=== PATIENT | female | born 1965 | race Caucasian/White ===

== ENCOUNTER 2017-05-18 08:59 | Day surgery (SDC) | payer BC ==
[2017-05-17 09:58] VITALS: BMI 28.3
[~2017-05-18 08:59] MED LIST: LACTATED RINGERS 1,000 ML IV SCH; LIDOCAINE 1% 20 ML VIAL (10MG/ML) FOR IV START INTRADERMA PRN
[2017-05-18] MEDS ORDERED: fentaNYL (PF) 50 MCG/ML 2 ML AMP ONE (10:19)
[2017-05-18] MEDS ORDERED: PROPOFOL 10 MG/ML 20 ML VIAL IV ONE (10:19)
[2017-05-18] MEDS ORDERED: LIDOCAINE 1% INJ 10MG/ML (20 ML MDV) ONE (10:19)
[2017-05-18 10:20] VITALS: RESP 16; TEMP 97
--- NOTE | 2017-05-18 10:43 | P.PCN ---
Date of Procedure: 05/18/17 Procedure(s) Performed: Brief history: Patient is a pleasant 52-year-old white female, scheduled for an elective upper endoscopy as well as colonoscopy as a part of evaluation of deficiency anemia. She denies any GI symptoms. She takes occasional NSAIDs. No prior history of peptic ulcer disease. Procedure performed: Esophagogastroduodenoscopy with biopsy Colonoscopy Preoperative diagnosis: Iron deficiency anemia Anesthesia: MAC Procedure: After informed consent was obtained from the patient was brought into the endoscopy unit and IV sedation was administered by anesthesia under continuous monitoring. Initially upper endoscopy was done. The Olympus GF 160 video endoscope was inserted inserted into the mouth and esophagus intubated without any difficulty and was gradually advanced into the stomach and duodenum and carefully examined. The bulb and second part of the duodenum appeared normal. Biopsies were done from the duodenum to rule out celiac disease. The scope was then withdrawn into the stomach adequately insufflated with air and upon careful examination the antrum had mild gastritis and biopsies were done from this area. The body, cardia and fundus appeared normal. The scope was then withdrawn into the esophagus. The GE junction was located at 40 cm to the incisors. It appeared regular with no erythema erosions or ulcerations. Rest of the esophagus appeared normal. Patient tolerated the procedure well. At this time the patient continued to remain sedation. Initial digital rectal examination was normal. Olympus CF 160 video colonoscope was then inserted into the rectum and gradually advanced to the cecum without any difficulty. Careful examination was performed as the scope was gradually being withdrawn. The prep was excellent. The cecum, ascending colon, transverse colon, descending colon, sigmoid colon and rectum appeared normal. Retroflexion was performed in the rectum and no lesions were noted. Patient tolerated the procedure well. Impression: 1. Upper endoscopy revealed mild antral gastritis but no evidence of esophagitis or peptic ulcer disease. 2. Colonoscopy was essentially within normal limits with no evidence of colitis or colorectal neoplasia Recommendations: Findings of this examination were discussed with the patient as well as her family. She was advised to follow with the biopsy results. She will resume iron supplements. She can have a repeat screening colonoscopy in 10 years.
[2017-05-18 11:06] VITALS: BP 133/82; PULSE 64
== END 2017-05-18 11:32 | disposition home or self-care (01) ==
LOC: ORWHC2ENDO 08:59
PROVIDERS: ATTEND Internal Medicine Gastroenterology
DX: D50.9 Iron deficiency anemia, unspecified (principal); K29.60 Other gastritis without bleeding; E07.9 Disorder of thyroid, unspecified; Z79.899 Other long term (current) drug therapy; Z88.1 Allergy status to other antibiotic agents
CPT/HCPCS: 81025; 88305; 88342; 45378; 43239; J2001; J3010; J2704

== ENCOUNTER → 2017-06-21 | Outpatient (CLI) | payer BC ==
--- NOTE | 2017-06-22 11:14 | MM ---
Reason for exam: screening (asymptomatic). Last mammogram was performed 1 year and 1 month ago. History: Patient is postmenopausal. Physical Findings: A clinical breast exam by your physician is recommended on an annual basis and results should be correlated with mammographic findings. MG 3D Screening Mammo W/Cad Bilateral CC and MLO view(s) were taken. Prior study comparison: May 12, 2016, bilateral MG 3d screening mammo w/cad. April 06, 2015, bilateral MG screening mammo w CAD. There are scattered fibroglandular densities. No significant changes when compared with prior studies. ASSESSMENT: Negative, BI-RAD 1 RECOMMENDATION: Routine screening mammogram of both breasts in 1 year.
== END | disposition home or self-care (01) ==
LOC: RADMAMWWP 09:12
PROVIDERS: ATTEND Obstetrics & Gynecology
DX: Z12.31 Encounter for screening mammogram for malignant neoplasm of breast (principal)
CPT/HCPCS: 77063; 77067

== ENCOUNTER 2018-04-02 16:01 | Emergency (ER) | payer BC, OTHER ==
[2018-04-02] MEDS ORDERED: DIPH,PERTUS(ACELL)TETVAC-LF 0.5 ML VIAL IM ONE (16:05)
[2018-04-02 16:19] VITALS: BP 128/82; PULSE 62; RESP 18; TEMP 98.4
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
== END 2018-04-02 16:52 | disposition home or self-care (01) ==
LOC: EC 16:01
DX: S50.812A Abrasion of left forearm, initial encounter (principal); S00.81XA Abrasion of other part of head, initial encounter; Z23 Encounter for immunization; Z79.899 Other long term (current) drug therapy; Z88.1 Allergy status to other antibiotic agents; Y04.8XXA Assault by other bodily force, initial encounter; Y92.69 Other specified industrial and construction area as the place of occurrence of the external cause; Y99.0 Civilian activity done for income or pay
CPT/HCPCS: 90471; 90715; 99283

== ENCOUNTER → 2018-08-05 | Outpatient (CLI) | payer BC ==
--- NOTE | 2018-08-06 11:13 | MM ---
Reason for exam: screening (asymptomatic). Last mammogram was performed 1 year and 2 months ago. History: Patient is postmenopausal. Physical Findings: A clinical breast exam by your physician is recommended on an annual basis and results should be correlated with mammographic findings. MG 3D Screening Mammo W/Cad Bilateral CC and MLO view(s) were taken. Prior study comparison: June 21, 2017, bilateral MG 3d screening mammo w/cad. May 12, 2016, bilateral MG 3d screening mammo w/cad. There are scattered fibroglandular densities. There are benign appearing round calcifications bilaterally. There is no discrete abnormality. ASSESSMENT: Benign, BI-RAD 2 RECOMMENDATION: Routine screening mammogram of both breasts in 1 year.
== END ==
LOC: RADMAMWWP 08:22
PROVIDERS: ATTEND Obstetrics & Gynecology
DX: Z12.31 Encounter for screening mammogram for malignant neoplasm of breast (principal)
CPT/HCPCS: 77063; 77067

== ENCOUNTER → 2019-08-15 | Outpatient (CLI) | payer BC ==
--- NOTE | 2019-08-18 08:27 | MM ---
Reason for exam: screening (asymptomatic). Last mammogram was performed 1 year ago. History: Patient is postmenopausal. Family history of breast cancer in mother at age 74. Physical Findings: A clinical breast exam by your physician is recommended on an annual basis and results should be correlated with mammographic findings. MG 3D Screening Mammo W/Cad Bilateral CC and MLO view(s) were taken. XCCL view(s) were taken of the right breast. Prior study comparison: August 05, 2018, bilateral MG 3d screening mammo w/cad. June 21, 2017, bilateral MG 3d screening mammo w/cad. There are scattered fibroglandular densities. Benign appearing bilateral calcifications. No suspicious abnormality. No significant changes when compared with prior studies. ASSESSMENT: Benign, BI-RAD 2 RECOMMENDATION: Routine screening mammogram of both breasts in 1 year.
== END ==
LOC: RADMAMWWP 08:20
PROVIDERS: ATTEND Obstetrics & Gynecology
DX: Z12.31 Encounter for screening mammogram for malignant neoplasm of breast (principal); Z78.0 Asymptomatic menopausal state; Z80.3 Family history of malignant neoplasm of breast
CPT/HCPCS: 77063; 77067

== ENCOUNTER → 2020-06-04 | Outpatient (CLI) | payer BC | END | disposition home or self-care (01) | LOC: LABMAIN 18:51 | PROVIDERS: ATTEND Emergency Medicine | DX: Z01.84 Encounter for antibody response examination (principal) | CPT/HCPCS: 36415; 86769 ==

== ENCOUNTER 2020-08-04 09:07 | Emergency (ER) | payer BC, OTHER ==
--- NOTE | 2020-08-04 09:09 | ED ---
General Adult HPI - General Stated complaint: Needlestick Time Seen by Provider: 08/04/20 09:08 Source: patient, RN notes reviewed Mode of arrival: ambulatory Limitations: no limitations - History of Present Illness Initial comments: This is a 55-year-old female presents emergency Department chief complaint of needlestick. Patient states that she was feeling cart full of needles states that she was moving them in there was a needle which was uncapped. He did not appear to be dirty in nature of this is unclear. Patient is up-to-date on her vaccines. Patient states she poked her left hand fourth digit with minimal blood - Related Data Home Medications Medication Instructions Recorded Confirmed Levothyroxine Sodium [Levoxyl] 125 mcg PO QAM 07/20/14 05/17/17 Ascorbic Acid [Vitamin C] 500 mg PO DAILY 05/17/17 05/17/17 Cholecalciferol (Vitamin D3) 2,000 unit PO DAILY 05/17/17 05/17/17 [Vitamin D3] Fish Oil/Dha/Epa [Fish Oil 1,200 1 each PO DAILY 05/17/17 05/17/17 mg Fish Oil] Vitamin B Complex 1 each PO DAILY 05/17/17 05/17/17 Vitamin C/Biotin [Hair, Skin and 1 tab PO DAILY 05/17/17 05/17/17 Nails] Allergies Allergy/AdvReac Type Severity Reaction Status Date / Time Tetracyclines Allergy Unknown Verified 08/04/20 09:16 Review of Systems ROS Statement: Those systems with pertinent positive or pertinent negative responses have been documented in the HPI. ROS Other: All systems not noted in ROS Statement are negative. Past Medical History Past Medical History: Thyroid Disorder History of Any Multi-Drug Resistant Organisms: None Reported Past Surgical History: Back Surgery, Section Additional Past Surgical History / Comment(s): endometrial ablation. Past Psychological History: No Psychological Hx Reported General Exam General appearance: alert, in no apparent distress Head exam: Present: atraumatic, normocephalic, normal inspection Respiratory exam: Present: normal lung sounds bilaterally. Absent: respiratory distress, wheezes, rales, rhonchi, stridor Cardiovascular Exam: Present: regular rate, normal rhythm, normal heart sounds. Absent: systolic murmur, diastolic murmur, rubs, gallop, clicks Extremities exam: Present: other (Small puncture wound noted to the left fourth digit distal tip) Course Vital Signs 08/04/20 09:10 Temperature 98.0 F Pulse Rate 65 Respiratory 18 Rate Blood Pressure 127/80 O2 Sat by Pulse 99 Oximetry Medical Decision Making - Medical Decision Making Patient has needlestick of left hand no source most likely clean needle which was uncapped. Prophylaxis was offered patient declined patient will follow-up for retesting. Disposition Clinical Impression: Needle stick injury of finger Disposition: HOME SELF-CARE Condition: Stable Instructions (If sedation given, give patient instructions): Needle Stick Injuries (ED) Additional Instructions: Please return to the Emergency Department if symptoms worsen or any other concerns. Is patient prescribed a controlled substance at d/c from ED?: No Referrals: John Gonzalez MD [Primary Care Provider] - 1-2 days Time of Disposition: 09:09
[2020-08-04 09:16] VITALS: BP 127/80; PULSE 65; RESP 18; TEMP 98
== END 2020-08-04 09:26 | disposition home or self-care (01) ==
LOC: EC 09:07
DX: S61.235A Puncture wound without foreign body of left ring finger without damage to nail, initial encounter (principal); Y99.0 Civilian activity done for income or pay; W46.0XXA Contact with hypodermic needle, initial encounter
CPT/HCPCS: 99282

== ENCOUNTER → 2020-08-04 | Outpatient (CLI) | payer BC | DX: Z53.9 Procedure and treatment not carried out, unspecified reason (principal) ==

== ENCOUNTER → 2020-08-24 | Outpatient (CLI) | payer BC ==
--- NOTE | 2020-08-25 10:18 | MM ---
Reason for exam: screening (asymptomatic). Last mammogram was performed 1 year ago. History: Patient is postmenopausal. Family history of breast cancer in mother at age 74. Physical Findings: A clinical breast exam by your physician is recommended on an annual basis and results should be correlated with mammographic findings. MG 3D Screening Mammo W/Cad Bilateral CC and MLO view(s) were taken. Prior study comparison: August 15, 2019, bilateral MG 3d screening mammo w/cad. August 05, 2018, bilateral MG 3d screening mammo w/cad. There are scattered fibroglandular densities. Stable benign calcifications. There is no discrete abnormality. No significant changes when compared with prior studies. ASSESSMENT: Benign, BI-RAD 2 RECOMMENDATION: Routine screening mammogram of both breasts in 1 year.
== END ==
LOC: RADMAMWWP 10:00
PROVIDERS: ATTEND Obstetrics & Gynecology
DX: Z12.31 Encounter for screening mammogram for malignant neoplasm of breast (principal); Z78.0 Asymptomatic menopausal state; Z80.3 Family history of malignant neoplasm of breast
CPT/HCPCS: 77063; 77067

== ENCOUNTER → 2021-03-25 | Outpatient (CLI) | payer BC ==
[2021-03-25 07:58] LABS: HGB 13.8 gm/dL (11.4-16.0); MCH 28.6 pg (25.0-35.0); MCHC 32.1 g/dL (31.0-37.0); MCV 88.9 fL (80.0-100.0); Mean Platelet Volume 7.7; Platelet Count 265 k/uL (150-450); RBC 4.84 m/uL (3.80-5.40); RDW 12.8 % (11.5-15.5); WBC 6.4 k/uL (3.8-10.6)
[2021-03-25 12:10] LABS: African American GFR (CKD) 114.6 (60.0-200.0); Albumin 4.7 g/dL (3.8-4.9); Albumin/Globulin Ratio 1.89 (1.60-3.17); Anion Gap 14.3 mmol/L (4.00-12.00); BUN/Creat Ratio 25.72 Ratio (12.00-20.00); Blood Urea Nitrogen 16.9 mg/dL (9.0-27.0); Calcium 10.2 mg/dL (8.7-10.3); Carbon Dioxide 24.7 mmol/L (21.6-31.8); Chol/HDL Ratio 3.55 Ratio; Globulin 2.5 g/dL (1.6-3.3); HDL Cholesterol 52.9 mg/dL (40.00-60.00); LDL Cholesterol,Calculated 101.9 mg/dL (0.0-131.0); Non-African American GFR(CKD) 98.9 (60.0-200.0); Potassium 4.3 mmol/L (3.5-5.5); T4, Free (Free Thyroxine) 1.35 ng/dL (0.800-1.800); Total Bilirubin 0.4 mg/dL (0.30-1.20); Total Protein 7.1 g/dL (6.2-8.2); VLDL Calculation 33.2 mg/dL (5.00-40.00)
== END | disposition home or self-care (01) ==
LOC: LABMAIN 07:23
PROVIDERS: ATTEND Family Medicine
DX: Z00.01 Encounter for general adult medical examination with abnormal findings (principal); E03.9 Hypothyroidism, unspecified; Z20.822 Contact with and (suspected) exposure to COVID-19
CPT/HCPCS: 36415; 80053; 80061; 84439; 84443; 84481; 85027; 86769

== ENCOUNTER → 2021-10-07 | Outpatient (CLI) | payer BC ==
--- NOTE | 2021-10-10 11:49 | MM ---
Reason for exam: screening (asymptomatic). Last mammogram was performed 1 year and 1 month ago. History: Patient is postmenopausal. Family history of breast cancer in mother at age 74. Physical Findings: A clinical breast exam by your physician is recommended on an annual basis and results should be correlated with mammographic findings. MG 3D Screening Mammo W/Cad Bilateral CC and MLO view(s) were taken. Prior study comparison: August 24, 2020, bilateral MG 3d screening mammo w/cad. August 15, 2019, bilateral MG 3d screening mammo w/cad. There are scattered fibroglandular densities. There are benign appearing round calcifications bilaterally. There is no discrete abnormality. ASSESSMENT: Benign, BI-RAD 2 RECOMMENDATION: Routine screening mammogram of both breasts in 1 year.
== END | disposition home or self-care (01) ==
LOC: RADMAMWWP 12:59
PROVIDERS: ATTEND Obstetrics & Gynecology
DX: Z12.31 Encounter for screening mammogram for malignant neoplasm of breast (principal)
CPT/HCPCS: 77063; 77067

== ENCOUNTER → 2022-04-11 | Outpatient (CLI) | payer BC ==
[2022-04-11 10:59] LABS: HCT 39.9 % (37.2-46.3); HGB 12.8 g/dL (12.0-15.0); MCH 27.1 pg (27.0-32.0); MCHC 32.1 g/dL (32.0-37.0); MCV 84.5 fL (80.0-97.0); NRBC Per 100 WBC 0 /100 WBCS (0.0-0.0); Platelet Count 292 X 10*3/uL (140-440); RBC 4.72 X 10*6/uL (4.10-5.20); RDW 13.6 % (11.5-14.5); WBC 9.54 X 10*3/uL (4.50-10.00)
[2022-04-11 11:36] LABS: % Iron Saturation 14.59 (12.00-45.00); ALT 23 U/L (8-44); AST 18 U/L (13-35); African American GFR (CKD) 112.2 (60.0-200.0); Albumin 4.3 g/dL (3.8-4.9); Albumin/Globulin Ratio 1.89 (1.60-3.17); Alkaline Phosphatase 92 U/L (41-126); BUN/Creat Ratio 26.35 Ratio (12.00-20.00); Blood Urea Nitrogen 18.1 mg/dL (9.0-27.0); Calcium 9.6 mg/dL (8.7-10.3); Carbon Dioxide 26.4 mmol/L (20.0-27.5); Chloride 103 mmol/L (96-109); Chol/HDL Ratio 4.14 Ratio; Globulin 2.3 g/dL (1.6-3.3); Glucose 101 mg/dL (70-110); Iron 67 ug/dL (50-170); LDL Cholesterol,Calculated 100.5 mg/dL (0.0-131.0); Non-African American GFR(CKD) 96.8 (60.0-200.0); Potassium 4.3 mmol/L (3.5-5.5); Sodium 141 mmol/L (135-145); Total Iron Binding Capacity 456 ug/dL (228-460); Total Protein 6.6 g/dL (6.2-8.2)
== END | disposition home or self-care (01) ==
LOC: LABMAIN 07:15
PROVIDERS: ATTEND Family Medicine
DX: Z00.01 Encounter for general adult medical examination with abnormal findings (principal); E03.9 Hypothyroidism, unspecified; D50.9 Iron deficiency anemia, unspecified
CPT/HCPCS: 80053; 80061; 83540; 83550; 84439; 84443; 84481; 85027

== ENCOUNTER → 2022-11-09 | Outpatient (CLI) | payer BC ==
--- NOTE | 2022-11-10 18:29 | MM ---
Reason for Exam: Screening (asymptomatic). Last mammogram was performed 1 year(s) and 1 month(s) ago. Patient History: Menarche at age 11. First Full-Term at age 22. Postmenopausal. Mother had breast cancer, age 74. Risk Values: Earlene 5 year model risk: 2.7%. NCI Lifetime model risk: 15.8%. Prior Study Comparison: 08/15/2019 Bilateral Screening Mammogram, [facility]. 08/24/2020 Bilateral Screening Mammogram, [facility]. 10/07/2021 Bilateral Screening Mammogram, [facility]. Tissue Density: The breast tissue is almost entirely fat. Findings: Analyzed By CAD. A few benign oil cyst calcifications bilaterally. There is no suspicious group of microcalcifications or new suspicious mass in either breast. Overall Assessment: Benign, BI-RAD 2 Management: Screening Mammogram of both breasts in 1 year. . Patient should continue monthly self-breast exams. A clinical breast exam by your physician is recommended on an annual basis. This exam should not preclude additional follow-up of suspicious palpable abnormalities. Note on Earlene scores and lifetime risk: 1. A Earlene score greater than 3% is considered moderate risk. If this is the case, consider specialist referral to assess eligibility for a risk reducing agent. 2. If overall lifetime risk for the development of breast cancer is 20% or higher, the patient may qualify for future screening with alternating mammogram and breast MRI. Electronically signed and approved by: Alexa Wiggins M.D. Radiologist
== END | disposition home or self-care (01) ==
LOC: RADMAMWWP 10:23
PROVIDERS: ATTEND Obstetrics & Gynecology
DX: Z12.31 Encounter for screening mammogram for malignant neoplasm of breast (principal); Z78.0 Asymptomatic menopausal state; Z80.3 Family history of malignant neoplasm of breast
CPT/HCPCS: 77063; 77067

== ENCOUNTER 2024-04-14 08:27 | Inpatient (IN) | payer BC ==
--- NOTE | 2024-04-14 09:31 | ED ---
Dizziness HPI - General Chief Complaint: Dizziness Stated Complaint: near syncope Time Seen by Provider: 04/14/24 08:30 Source: patient, EMS Mode of arrival: EMS Limitations: no limitations - History of Present Illness Initial Comments: 59-year-old female presents to the emergency department with a near syncopal episode. She states that she woke up this morning and was having intense lower abdominal pain. She felt as if she had to go to the bathroom. She went into the bathroom and sat on the toilet. She became extremely diaphoretic. Daughter states that she had slurred speech and was reporting that she had tingling in her arm. They immediately called EMS. Patient was slightly hypertensive on scene with a blood pressure of 150s systolic. She denies having a headache or any visual disturbance. No weakness in her arms or legs. No history of stroke. Upon EMS arrival they did not appreciate any lateralizing deficits. She denies having any chest pain or shortness of breath with the episode. She denies any nausea, vomiting or diarrhea. No fevers. She did end up having a large bowel movement on the toilet. She continues to have some lower left abdominal pain. No ripping or tearing sensation to her back. No history of any cardiac disease. No other alleviating, precipitating modifying factors - Related Data Home Medications Medication Instructions Recorded Confirmed Atorvastatin [Lipitor] 10 mg PO DAILY 04/14/24 04/14/24 Celecoxib [CeleBREX] 200 mg PO DAILY 04/14/24 04/14/24 Levothyroxine Sodium [Synthroid] 137 mcg PO DAILY 04/14/24 04/14/24 Venlafaxine HCl [Effexor XR] 150 mg PO DAILY 04/14/24 04/14/24 Allergies Allergy/AdvReac Type Severity Reaction Status Date / Time Tetracyclines AdvReac Nausea & Verified 04/14/24 11:29 Vomiting Review of Systems ROS Statement: Those systems with pertinent positive or pertinent negative responses have been documented in the HPI. ROS Other: All systems not noted in ROS Statement are negative. Past Medical History Past Medical History: Hyperlipidemia, Thyroid Disorder History of Any Multi-Drug Resistant Organisms: None Reported Past Surgical History: Back Surgery, Section Additional Past Surgical History / Comment(s): endometrial ablation. Past Psychological History: No Psychological Hx Reported Smoking Status: Never smoker Past Alcohol Use History: None Reported Past Drug Use History: None Reported General Exam Limitations: no limitations General appearance: alert, in no apparent distress Head exam: Present: atraumatic, normocephalic, normal inspection Eye exam: Present: normal appearance, PERRL, EOMI. Absent: scleral icterus, conjunctival injection, periorbital swelling ENT exam: Present: normal exam, mucous membranes moist Neck exam: Present: normal inspection. Absent: tenderness, meningismus, lymphadenopathy Respiratory exam: Present: normal lung sounds bilaterally. Absent: respiratory distress, wheezes, rales, rhonchi, stridor Cardiovascular Exam: Present: regular rate, normal rhythm, normal heart sounds. Absent: systolic murmur, diastolic murmur, rubs, gallop, clicks GI/Abdominal exam: Present: soft, tenderness (Left lower quadrant), normal bowel sounds. Absent: distended, guarding, rebound, rigid Extremities exam: Present: normal inspection, full ROM, normal capillary refill. Absent: tenderness, pedal edema, joint swelling, calf tenderness Back exam: Present: normal inspection Neurological exam: Present: alert, oriented X3, CN II-XII intact Psychiatric exam: Present: normal affect, normal mood Skin exam: Present: warm, dry, intact, normal color. Absent: rash Course Vital Signs 04/14/24 04/14/24 04/14/24 08:32 09:47 09:48 Temperature 97.9 F Pulse Rate 58 L Pulse Rate [ 63 69 Environmental Science Program Director ] Respiratory 18 Rate Blood Pressure 144/94 Blood Pressure 133/91 [Right Arm Sitting] Blood Pressure [Right Arm Standing] Blood Pressure 131/87 [Right Arm Supine] O2 Sat by Pulse 99 Oximetry 04/14/24 04/14/24 04/14/24 09:49 10:42 12:04 Temperature 97.5 F L 98.0 F Pulse Rate 67 68 Pulse Rate [ 68 Environmental Science Program Director ] Respiratory 17 17 Rate Blood Pressure 139/94 129/91 Blood Pressure [Right Arm Sitting] Blood Pressure 138/89 [Right Arm Standing] Blood Pressure [Right Arm Supine] O2 Sat by Pulse 98 100 Oximetry Medical Decision Making - Medical Decision Making Was pt. sent in by a medical professional or institution (, PA, SUPERVISOR WATERPROOFING, urgent care, hospital, or half-way...) When possible be specific @ -[No] Did you speak to anyone other than the patient for history (EMS, parent, family, police, friend...)? What history was obtained from this source @ -[No] Did you review nursing and triage notes (agree or disagree)? Why? @ -[I reviewed and agree with nursing and triage notes] Were old charts reviewed (outside hosp., previous admission, EMS record, old EKG, old radiological studies, urgent care reports/EKG's, half-way records)? Report findings @ -[No old charts were reviewed] Differential Diagnosis (chest pain, altered mental status, abdominal pain women, abdominal pain men, vaginal bleeding, weakness, fever, dyspnea, syncope, headache, dizziness, GI bleed, back pain, seizure, CVA, palpatations, mental health, musculoskeletal)? @ -[not applicable] EKG interpreted by me (3pts min.). @Yes and demonstrates sinus bradycardia with a rate of 56. [place] interval 206. QRS 81. QTc of 418. No acute ST segment elevations or depressions X-rays interpreted by me (1pt min.). @ -[None done] CT interpreted by me (1pt min.). @ -[None done] U/S interpreted by me (1pt. min.). @ -[None done] What testing was considered but not performed or refused? (CT, X-rays, U/S, labs)? Why? @ -[None] What meds were considered but not given or refused? Why? @ -[None] Did you discuss the management of the patient with other professionals (professionals i.e. , PA, SUPERVISOR W[employer]PROO[employer]ING, lab, RT, psych nurse, social service coordinator, plumbing inspector, teacher, lead security officer, disease case manager)? Give summary @ -[No] Was smoking cessation discussed for >3mins.? @ -[No] Was critical care preformed (if so, how long)? @ -[No] Were there social determinants of health that impacted care today? How? (Homelessness, low income, unemployed, alcoholism, drug addiction, transportation, low edu. Level, literacy, decrease access to med. care, detention, rehab)? @ -[No] Was there de-escalation of care discussed even if they declined (Discuss DNR or withdrawal of care, Hospice)? DNR status @ -[No] What co-morbidities impacted this encounter? (DM, HTN, Smoking, COPD, CAD, Cancer, CVA, ARF, Chemo, Hep., AIDS, mental health diagnosis, sleep apnea, morbid obesity)? @ -[None] Was patient admitted / discharged? Hospital course, mention meds given and route, prescriptions, significant lab abnormalities, going to OR and other pertinent info. @ -[hospital course] Undiagnosed new problem with uncertain prognosis? @ -[No] Drug Therapy requiring intensive monitoring for toxicity (Heparin, Nitro, Insulin, Cardizem)? @ -[No] Were any procedures done? @ -[No] Diagnosis/symptom? @ -[default] Acute, or Chronic, or Acute on Chronic? @ -[default] Uncomplicated (without systemic symptoms) or Complicated (systemic symptoms)? @ -[default] Side effects of treatment? @ -[No] Exacerbation, Progression, or Severe Exacerbation? @ -[No] Poses a threat to life or bodily function? How? (Chest pain, [place], [place], pneumonia, PE, COPD, DKA, ARF, appy, cholecystitis, CVA, Diverticulitis, Homicidal, Suicidal, threat to staff... and all critical care pts) @ -[No] - Lab Data Result diagrams: 04/14/24 09:47 04/14/24 09:47 Lab Results 04/14/24 04/14/24 04/14/24 Range/Units 09:47 09:47 09:47 WBC 6.8 (3.8-10.6) k/uL RBC 4.50 (3.80-5.40) m/uL Hgb 12.4 (11.4-16.0) gm/dL Hct 38.9 (34.0-46.0) % MCV 86.5 (80.0-100.0) fL MCH 27.6 (25.0-35.0) pg MCHC 31.9 (31.0-37.0) g/dL RDW 13.9 (11.5-15.5) % Plt Count 272 (150-450) k/uL MPV 8.2 Neutrophils % 56 % Lymphocytes % 33 % Monocytes % 6 % Eosinophils % 4 % Basophils % 0 % Neutrophils # 3.8 (1.3-7.7) k/uL Lymphocytes # 2.2 (1.0-4.8) k/uL Monocytes # 0.4 (0-1.0) k/uL Eosinophils # 0.3 (0-0.7) k/uL Basophils # 0.0 (0-0.2) k/uL PT 10.2 (10.0-12.5) sec INR 0.9 (<1.2) APTT 20.9 L (22.0-30.0) sec Sodium 140 (137-145) mmol/L Potassium 4.1 (3.5-5.1) mmol/L Chloride 104 (98-107) mmol/L Carbon Dioxide 26 (22-30) mmol/L Anion Gap 10 mmol/L BUN 23 H (7-17) mg/dL Creatinine 0.57 (0.52-1.04) mg/dL Est GFR (CKD-EPI)AfAm >90 (>60 ml/min/1.73 sqM) Est GFR (CKD-EPI)NonAf >90 (>60 ml/min/1.73 sqM) Glucose 116 H (74-99) mg/dL Calcium 9.4 (8.4-10.2) mg/dL Total Bilirubin 0.4 (0.2-1.3) mg/dL AST 32 (14-36) U/L ALT 31 (4-34) U/L Alkaline Phosphatase 84 (38-126) U/L Troponin I (0.000-0.034) ng/mL Total Protein 7.1 (6.3-8.2) g/dL Albumin 4.3 (3.5-5.0) g/dL TSH <0.015 L (0.465-4.680) mIU/L Free T4 1.43 (0.78-2.19) ng/dL Urine Color Urine Appearance (Clear) Urine pH (5.0-8.0) Ur Specific [place] (1.001-1.035) Urine Protein (Negative) Urine Glucose (UA) (Negative) Urine Ketones (Negative) Urine Blood (Negative) Urine Nitrite (Negative) Urine Bilirubin (Negative) Urine Urobilinogen (<2.0) mg/dL Ur Leukocyte Esterase (Negative) Urine RBC (0-5) /hpf Urine WBC (0-5) /hpf Ur Squamous Epith Cells (0-4) /hpf Urine Mucus (None) /hpf 04/14/24 04/14/24 Range/Units 09:47 10:41 WBC (3.8-10.6) k/uL RBC (3.80-5.40) m/uL Hgb (11.4-16.0) gm/dL Hct (34.0-46.0) % MCV (80.0-100.0) fL MCH (25.0-35.0) pg MCHC (31.0-37.0) g/dL RDW (11.5-15.5) % Plt Count (150-450) k/uL MPV Neutrophils % % Lymphocytes % % Monocytes % % Eosinophils % % Basophils % % Neutrophils # (1.3-7.7) k/uL Lymphocytes # (1.0-4.8) k/uL Monocytes # (0-1.0) k/uL Eosinophils # (0-0.7) k/uL Basophils # (0-0.2) k/uL PT (10.0-12.5) sec INR (<1.2) APTT (22.0-30.0) sec Sodium (137-145) mmol/L Potassium (3.5-5.1) mmol/L Chloride (98-107) mmol/L Carbon Dioxide (22-30) mmol/L Anion Gap mmol/L BUN (7-17) mg/dL Creatinine (0.52-1.04) mg/dL Est GFR (CKD-EPI)AfAm (>60 ml/min/1.73 sqM) Est GFR (CKD-EPI)NonAf (>60 ml/min/1.73 sqM) Glucose (74-99) mg/dL Calcium (8.4-10.2) mg/dL Total Bilirubin (0.2-1.3) mg/dL AST (14-36) U/L ALT (4-34) U/L Alkaline Phosphatase (38-126) U/L Troponin I <0.012 (0.000-0.034) ng/mL Total Protein (6.3-8.2) g/dL Albumin (3.5-5.0) g/dL TSH (0.465-4.680) mIU/L Free T4 (0.78-2.19) ng/dL Urine Color Light Yellow Urine Appearance Clear (Clear) Urine pH 6.5 (5.0-8.0) Ur Specific [place] 1.034 (1.001-1.035) Urine Protein Negative (Negative) Urine Glucose (UA) Negative (Negative) Urine Ketones Negative (Negative) Urine Blood Negative (Negative) Urine Nitrite Negative (Negative) Urine Bilirubin Negative (Negative) Urine Urobilinogen <2.0 (<2.0) mg/dL Ur Leukocyte Esterase Large H (Negative) Urine RBC 1 (0-5) /hpf Urine WBC 18 H (0-5) /hpf Ur Squamous Epith Cells 2 (0-4) /hpf Urine Mucus Rare H (None) /hpf Disposition Clinical Impression: Near syncope, Abdominal pain, Dysarthria, Lacunar infarction Disposition: ADMITTED IP TO THIS [facility] Condition: Stable Is patient prescribed a controlled substance at d/c from ED?: No Referrals: John Gonzalez MD [Primary Care Provider] - 1-2 days Time of Disposition: 12:26 Decision to Admit Reason: Admit from EC Decision Date: 04/14/24 Decision Time: 12:26
[2024-04-14] MEDS: SODIUM CHLORIDE 0.9% 1,000 ML IV STA (09:44)
[2024-04-14 10:10] LABS: Basophils % (A) 0 %; Eosinophils # (A) 0.3 k/uL (0-0.7); Eosinophils % (A) 4 %; HCT 38.9 % (34.0-46.0); HGB 12.4 gm/dL (11.4-16.0); Lymphocytes # (A) 2.2 k/uL (1.0-4.8); Lymphocytes % (A) 33 %; MCH 27.6 pg (25.0-35.0); MCHC 31.9 g/dL (31.0-37.0); MCV 86.5 fL (80.0-100.0); Mean Platelet Volume 8.2; Monocytes # (A) 0.4 k/uL (0-1.0); Monocytes % (A) 6 %; Neutrophils # (A) 3.8 k/uL (1.3-7.7); Neutrophils % (A) 56 %; Platelet Count 272 k/uL (150-450); RDW 13.9 % (11.5-15.5); WBC 6.8 k/uL (3.8-10.6)
[2024-04-14 10:21] LABS: ALT 31 U/L (4-34); AST 32 U/L (14-36); African American GFR (CKD) >90 (>60 ml/min/1.73 sqM); Albumin 4.3 g/dL (3.5-5.0); Alkaline Phosphatase 84 U/L (38-126); Anion Gap 10 mmol/L; Blood Urea Nitrogen 23 mg/dL (7-17); Calcium 9.4 mg/dL (8.4-10.2); Carbon Dioxide 26 mmol/L (22-30); Chloride 104 mmol/L (98-107); Glucose 116 mg/dL (74-99); Non-African American GFR(CKD) >90 (>60 ml/min/1.73 sqM); Potassium 4.1 mmol/L (3.5-5.1); Sodium 140 mmol/L (137-145); Total Bilirubin 0.4 mg/dL (0.2-1.3); Total Protein 7.1 g/dL (6.3-8.2)
--- NOTE | 2024-04-14 10:37 | CT ---
EXAMINATION TYPE: CT brain wo con CT DLP: 1095.7 mGycm, Automated exposure control for dose reduction was used. DATE OF EXAM: 04/14/2024 10:23 AM COMPARISON: None. CLINICAL INDICATION:Female, 59 years old with history of arm tingling, slurred speech, Arm tingling , slurred speech TECHNIQUE: Brain: Multiple axial CT images of the brain were obtained without IV contrast. . Coronal and sagitta l reformats reviewed. FINDINGS: Brain: Extra-axial spaces: No abnormal extra-axial fluid collections. Ventricular system: Within normal limits Cerebral parenchyma: No acute intraparenchymal hemorrhage or mass effect. Subtle region of hypointens ity within the right frontal lobe subcortical white matter and right pacheco radiata. The agosto-white j unction is well differentiated. Scattered hypoattenuating areas are seen within the periventricular w darci matter. Cerebellum: Low-lying cerebellar tonsils measuring approximately 3 mm below the foramen magnum Mass effect: No evidence of midline shift. Intracranial vasculature: Atherosclerotic calcifications of the intracranial vessels. Soft tissues: Normal. Calvarium/osseous structures: No depressed skull fracture. Paranasal sinuses and mastoid air cells: Clear Visualized orbits: Orbital contents are intact. IMPRESSION: 1. Subtle region of hypointensity within the right frontal lobe subcortical white matter and right co becca radiata. Findings are suspicious for age-indeterminate lacunar infarct. Consider further evaluat ion with MRI. 2. Nonspecific white matter changes, likely secondary to chronic small vessel ischemic disease. 3. Low-lying cerebellar tonsils measuring up to 3 multiple the foramina magnum. [facility], , 04/14/2024 10:35 AM
--- NOTE | 2024-04-14 10:43 | CT ---
EXAMINATION TYPE: CT abdomen pelvis w con CT DLP: 1054.5 mGycm, Automated exposure control for dose reduction was used. DATE OF EXAM: 04/14/2024 10:33 AM COMPARISON: None CLINICAL INDICATION:Female, 59 years old with history of llq pain; LLQ pain x this am TECHNIQUE: Standard CT of the abdomen and pelvis following the administration of 100 cc of Isovue 3 00 IV contrast material. Coronal and sagittal reformats were performed. FINDINGS: LOWER CHEST: Visualized lung bases are clear. Coronary artery calcifications. ABDOMEN LIVER: Unremarkable GALLBLADDER AND BILE DUCTS: Unremarkable. PANCREAS: Unremarkable. SPLEEN: Unremarkable. ADRENAL GLANDS: Unremarkable. KIDNEYS AND URETERS: No evidence of hydronephrosis or renal calculus. The kidneys enhance symmetrical ly. Contrast is demonstrated within both collecting systems on the delayed phase. PELVIS BLADDER: Unremarkable REPRODUCTIVE: Unremarkable. ABDOMEN & PELVIS STOMACH AND BOWEL: Small hiatal hernia, duodenum is unremarkable. Distal colonic diverticulosis witho ut evidence for acute diverticulitis. No focal bowel wall thickening. The appendix is within normal l imits. No evidence of bowel obstruction. PERITONEUM: No evidence of pneumoperitoneum or free fluid. VASCULATURE: Minimal atherosclerotic calcifications are present throughout the abdominal aorta and it s branches. No evidence of aortic aneurysm. Pelvic phleboliths. MUSCULOSKELETAL: No acute osseous abnormalities. Moderate multilevel lumbar degenerative disc disease and facet arthropathy. LYMPH NODES: No evidence for lymphadenopathy. SOFT TISSUE/ABDOMINAL WALL: Unremarkable IMPRESSION: 1. No acute abdominopelvic process. 2. Distal colonic diverticulosis without definitive evidence for acute diverticulitis. [facility], , 04/14/2024 10:40 AM
--- NOTE | 2024-04-14 11:09 | XR ---
EXAMINATION TYPE: XR chest 2V DATE OF EXAM: 04/14/2024 10:31 AM COMPARISON: 05/14/2012 CLINICAL INDICATION: Female, 59 years old with history of syncope; TECHNIQUE: XR chest 2V Frontal and lateral views of the chest. FINDINGS: Lungs/Pleura: There is no evidence of pleural effusion, focal consolidation, or pneumothorax. Pulmonary vascularity: Unremarkable. Heart/mediastinum: Cardiomediastinal silhouette is unremarkable. Musculoskeletal: No acute osseous pathology. IMPRESSION: No acute cardiopulmonary disease/process. [facility], , 04/14/2024 11:07 AM
[2024-04-14 11:11] LABS: INR 0.9 (<1.2); Prothrombin Time 10.2 sec (10.0-12.5)
[2024-04-14 11:13] LABS: Partial Thromboplastin Time 20.9 sec (22.0-30.0)
[2024-04-14 11:16] LABS: Appearance,Urine Clear (Clear); Bilirubin,Urine Negative (Negative); Blood,Urine Negative (Negative); Color,Urine Light Yellow; Glucose,Urine (UA) Negative (Negative); Ketones,Urine Negative (Negative); Leukocyte Esterase,Urine Large (Negative); Mucus,Urine Rare /hpf; Nitrite,Urine Negative (Negative); PH, Urine 6.5 (5.0-8.0); Protein,Urine Negative (Negative); RBC,Urine 1 /hpf (0-5); Specific Gravity,Urine 1.034 (1.001-1.035); Squamous Epithelial Cell,Urine 2 /hpf (0-4); Urobilinogen,Urine <2.0 mg/dL (<2.0); WBC,Urine 18 /hpf (0-5)
[2024-04-14 11:49] LABS: T4, Free (Free Thyroxine) 1.43 ng/dL (0.78-2.19)
[2024-04-14] MEDS ORDERED: NALOXONE 0.4 MG/ML 1 ML VIAL IV PRN (12:26)
[2024-04-14] MEDS: ASPIRIN 325 MG TAB PO STA (12:56)
--- NOTE | 2024-04-14 13:08 | US ---
EXAMINATION TYPE: US carotid duplex BILAT DATE OF EXAM: 04/14/2024 COMPARISON: NONE CLINICAL INDICATION: Female, 59 years old with history of Stenosis; Additional History: .... TECHNIQUE: Grayscale, color Doppler and spectral Doppler evaluation of the bilateral carotid systems and vertebral arteries. Indirect Doppler criteria was utilized. FINDINGS: EXAM MEASUREMENTS: RIGHT: Peak Systolic Velocity (PSV) cm/sec ----- Right CCA: 58.1 ----- Right ICA: 57.8 ----- Right ECA: 55.2 ICA/CCA ratio: 1.0 RIGHT: End Diastole cm/sec ----- Right CCA: 26.8 ----- Right ICA: 21.0 ----- Right ECA: 13.3 LEFT: Peak Systolic Velocity (PSV) cm/sec ----- Left CCA: 63.6 ----- Left ICA: 70.6 ----- Left ECA: 43.8 ICA/CCA ratio: 1.1 LEFT: End Diastole cm/sec ----- Left CCA: 28.4 ----- Left ICA: 29.6 ----- Left ECA: 10.9 VERTEBRALS (direction of flow): Right Vertebral: Antegrade Left Vertebral: Antegrade Rhythm: Normal Color Doppler imaging shows patency with blood flow throughout the carotid artery. Spectral waveforms are within normal limits. IMPRESSION: Right: Less than 50% stenosis of the carotid bifurcation. Normal (no stenosis)=ICA PSV < 125 cm/s: ra jeniffer < 2.0: ICA EDV<40 cm/s. Left: Less than 50% stenosis of the carotid bifurcation. Normal (no stenosis)=ICA PSV < 125 cm/s: rat io < 2.0: ICA EDV<40 cm/s. Criteria for Assigning % of Stenosis / Diameter reduction (Estimation based on the indirect measurements of the internal carotid artery velocities (ICA PSV). 1. Normal (no stenosis)=ICA PSV < 125 cm/s: ratio < 2.0: ICA EDV<40 cm/s. 2. Less than 50% stenosis=ICA PSV < 125 cm/s: ratio < 2.0: ICA EDV<40 cm/s. 3. 50 to 69% stenosis=ICA PSV of 125 to 230 cm/s: ration 2.0 ? 4.0: ICA EDV 40-100 cm/s. 4. Greater than 70% stenosis to near occlusion= ICA PSV > 230 cm/s: ratio > 4.0: ICA EDV > 100 cm/s. 5. Near occlusion= ICA PSV velocities may be low or undetectable: variable ratio and ICA EDV. 6. Total occlusion=unable to detect flow. [facility], , 04/14/2024 1:06 PM
--- NOTE | 2024-04-14 15:14 | P.HPIM ---
History of Present Illness H&P Date: 04/14/24 59 year old F with PMH of Hypothyroid, HLD presents to the ED. She reports experiencing lower abdominal cramping this morning and tried to use the toilet. She experienced diaphoresis and lightheadedness when she stood up. After taking 2 steps, she started to experience L arm numbness, slurred speech and confusion. Symptoms have currently resolved. In the ED she underwent extensive evaluation. BP 144/94, HR 58, T 97.9F, RR 18, 99% on RA. CBC, Coag panel, CMP significant for APTT 20.9, BUN 23, glu 116. TSH < 0.015, FT4 1.43. UA large LE and [address] WBCs. EKG sinus bradycardia. CT brain subtle hypointensity right frontal lobe and right pacheco radiata suspicious for lacunar infarct. CTAP diverticulosis. CXR negative. Patient is admitted for CVA workup. General: non toxic, no distress, appears at stated age Derm: warm, dry Head: atraumatic, normocephalic, symmetric Eyes: EOMI, no lid lag, anicteric sclera Mouth: no lip lesion, mucus membranes moist Cardiovascular: S1S2 bienvenido, no murmur Lungs: Clear to auscultation bilaterally, no rhonchi, no rales , no accessory muscle use Neuro: no obvious focal neuro deficits Psych: Alert, oriented, appropriate affect Based on my assessment of this patient, this patient meets a high complexity level of care. CVA: As seen on CT AP. Orthostats negative. ASA 325 mg PO QD. Increase Lipitor to 40 mg PO QHS. MRI brain, Echo, Carotid doppler, A1c, Lipid panel ordered. Telemetry monitoring. Advanced neurochecks. PT/OT/ST consult. Neuro consult. Subclinical hyperthyroidism: Reduce Synthroid dose to 125 mcg PO QD. Outpatient follow up. Abnormal UA: Asymptomatic. Monitor. "Anger": Effexor 150 mg PO QD. CODE STATUS: FULL CODE. DVT Prophylaxis: Lovenox SQ GI Prophylaxis: Designated medical POA if patient is not able to make medical decisions for them selves: Son and Daughter. I have reviewed the following clinical application consultant notes: ED note. I have reviewed the results of the following tests: As above I have ordered the following tests: As above I have discussed the care of this patient with the following independent historian: Family at bedside. I have independently interpreted the following test below: EKG. Discussed with Dr. Benitez. Past Medical History Past Medical History: Hyperlipidemia, Thyroid Disorder History of Any Multi-Drug Resistant Organisms: None Reported Past Surgical History: Back Surgery, Section Additional Past Surgical History / Comment(s): endometrial ablation. Past Psychological History: No Psychological Hx Reported Smoking Status: Never smoker Past Alcohol Use History: None Reported Past Drug Use History: None Reported Medications and Allergies Home Medications Medication Instructions Recorded Confirmed Type Atorvastatin [Lipitor] 10 mg PO DAILY 04/14/24 04/14/24 History Celecoxib [CeleBREX] 200 mg PO DAILY 04/14/24 04/14/24 History Levothyroxine Sodium [Synthroid] 137 mcg PO DAILY 04/14/24 04/14/24 History Venlafaxine HCl [Effexor XR] 150 mg PO DAILY 04/14/24 04/14/24 History Allergies Allergy/AdvReac Type Severity Reaction Status Date / Time Tetracyclines AdvReac Nausea & Verified 04/14/24 11:29 Vomiting Physical Exam Vitals: Vital Signs Temp Pulse Pulse Resp BP BP BP 04/14/24 12:04 98.0 F 68 17 129/91 04/14/24 10:42 97.5 F L 67 17 139/94 04/14/24 09:49 68 138/89 04/14/24 09:48 69 133/91 04/14/24 09:47 63 04/14/24 08:32 97.9 F 58 L 18 144/94 BP Pulse Ox 04/14/24 12:04 100 04/14/24 10:42 98 04/14/24 09:49 04/14/24 09:48 04/14/24 09:47 131/87 04/14/24 08:32 99 Intake and Output 04/13/24 04/14/24 04/14/24 22:59 06:59 14:59 Other: Weight 79.379 kg Results CBC & Chem 7: 04/14/24 09:47 04/14/24 09:47 Labs: Abnormal Lab Results - Last 24 Hours (Table) 04/14/24 04/14/24 04/14/24 Range/Units 09:47 09:47 10:41 APTT 20.9 L (22.0-30.0) sec BUN 23 H (7-17) mg/dL Glucose 116 H (74-99) mg/dL TSH <0.015 L (0.465-4.680) mIU/L Ur Leukocyte Esterase Large H (Negative) Urine WBC 18 H (0-5) /hpf Urine Mucus Rare H (None) /hpf
[2024-04-14] MEDS: ATORVASTATIN 40 MG TAB PO SCH (20:10)
[2024-04-15] MEDS: LEVOTHYROXINE 125 MCG TAB PO SCH (06:19)
[2024-04-15] MEDS ORDERED: LEVOTHYROXINE 137 MCG TAB PO SCH (06:30)
--- NOTE | 2024-04-15 07:13 | CA ---
Transthoracic Echo Report Name: Suleiman Hubbard Age: 59 Gender: F : 1965 Exam Date: 04/14/2024 13:57 Exam Location: [facility] Ht (in): 66 Wt (lb): 175 Ordering Physician: Nathalia Benitez DO Attending/Referring Phys: [id number], Emmanuel Care Trainer Katie Belcher, LEE ANN Procedure CPT: Indications: Thrombus Cardiac Hx: Technical Quality: Fair Contrast 1: Total Dose (mL): Contrast 2: Total Dose (mL): MEASUREMENTS (Male / Female) Normal Values 2D ECHO LV Diastolic Diameter PLAX 4.2 cm 4.2 - 5.9 / 3.9 - 5.3 cm LV Systolic Diameter PLAX 2.8 cm IVS Diastolic Thickness 0.8 cm 0.6 - 1.0 / 0.6 - 0.9 cm LVPW Diastolic Thickness 1.3 cm 0.6 - 1.0 / 0.6 - 0.9 cm LV Relative Wall Thickness 0.5 LVOT Diameter 2.0 cm LV Diastolic Volume MOD BP 103.1 cm??? 67 - 155 / 56 - 104 cm??? LV Systolic Volume MOD BP 39.4 cm??? 22 - 58 / 19 - 49 cm??? LV Ejection Fraction MOD BP 61.7 % >= 55 % LV Cardiac Index MOD BP 2161.8 cm???/min???m??? LV Diastolic Volume MOD 4C 110.1 cm??? LV Systolic Volume MOD 4C 45.5 cm??? LV Ejection Fraction MOD 4C 58.7 % LV Cardiac Index MOD 4C 2194.8 cm???/min???m??? LV Diastolic Length 4C 8.3 cm LV Systolic Length 4C 6.9 cm LV Diastolic Volume MOD 2C 91.1 cm??? LV Systolic Volume MOD 2C 32.5 cm??? LV Ejection Fraction MOD 2C 64.4 % LV Cardiac Index MOD 2C 1993.9 cm???/min???m??? LV Diastolic Length 2C 7.8 cm LV Systolic Length 2C 6.5 cm LA Volume 34.5 cm??? 18 - 58 / 22 - 52 cm??? LA Volume Index 17.7 cm???/m??? 16 - 28 cm???/m??? Ascending Aorta Diameter 4.0 cm DOPPLER AV Peak Velocity 268.9 cm/s AV Peak Gradient 28.9 mmHg AV Mean Velocity 181.6 cm/s AV Mean Gradient 15.1 mmHg AV Velocity Time Integral 58.4 cm LVOT Peak Velocity 116.6 cm/s LVOT Peak Gradient 5.4 mmHg LVOT Velocity Time Integral 24.3 cm LVOT Stroke Volume 78.4 cm??? LVOT Stroke Volume Index 41.5 ml/m??? LVOT Cardiac Index 2663.0 cm???/min???m??? AV Area Cont Eq vti 1.3 cm??? AV Area Cont Eq pk 1.4 cm??? MV Area PHT 3.8 cm??? Mitral E Point Velocity 92.6 cm/s Mitral A Point Velocity 69.8 cm/s Mitral E to A Ratio 1.3 MV Deceleration Time 199.7 ms TR Peak Velocity 200.9 cm/s TR Peak Gradient 16.1 mmHg Right Atrial Pressure 5.0 mmHg Pulmonary Artery Systolic Pressu 21.1 mmHg Right Ventricular Systolic Press 21.1 mmHg PV Peak Velocity 96.1 cm/s PV Peak Gradient 3.7 mmHg FINDINGS Left Ventricle Left ventricular ejection fraction is estimated at 55-60 %. Mildly increased posterior wall thickness. Left ventricular cavity size normal. No obvious regional wall motion abnormalities. Right Ventricle Normal right ventricular size and function. Right ventricular systolic pressure within normal limits. Right Atrium Normal right atrial size. Left Atrium Normal left atrial size. Mitral Valve Structurally normal mitral valve. No evidence for mitral valve prolapse. No mitral stenosis. Trace mitral regurgitation. Aortic Valve Bicuspid aortic valve. Mild aortic stenosis. No aortic regurgitation. Tricuspid Valve Structurally normal tricuspid valve. No tricuspid stenosis. Trace tricuspid regurgitation. Pulmonic Valve Structurally normal pulmonic valve. No pulmonic stenosis. Trace pulmonic regurgitation. Pericardium No pericardial effusion. Aorta Aortic annulus normal. Mildly dilated proximal ascending aorta (tube). CONCLUSIONS Normal biventricular systolic function Mild concentric left ventricular hypertrophy Bicuspid aortic valve with fusion of the right and left coronary cusps and mild aortic stenosis and no insufficiency Mildly dilated ascending aorta Normal pulmonary artery systolic pressure No pericardial effusion Previewed by: Dr. Rios Mercer MD (Electronically Signed) Final Date: 15 April 2024 07:12
[2024-04-15 07:34] LABS: Basophils % (A) 0 %; Eosinophils # (A) 0.3 k/uL (0-0.7); Eosinophils % (A) 4 %; HCT 37.9 % (34.0-46.0); HGB 11.9 gm/dL (11.4-16.0); Hypochromasia Slight; Lymphocytes # (A) 1.9 k/uL (1.0-4.8); Lymphocytes % (A) 32 %; MCH 27.5 pg (25.0-35.0); MCHC 31.3 g/dL (31.0-37.0); MCV 87.8 fL (80.0-100.0); Mean Platelet Volume 7.8; Monocytes # (A) 0.4 k/uL (0-1.0); Monocytes % (A) 7 %; Neutrophils # (A) 3.3 k/uL (1.3-7.7); Neutrophils % (A) 55 %; Platelet Count 246 k/uL (150-450); RBC 4.32 m/uL (3.80-5.40); RDW 13.9 % (11.5-15.5)
[2024-04-15 07:56] LABS: African American GFR (CKD) >90 (>60 ml/min/1.73 sqM); Anion Gap 4 mmol/L; Blood Urea Nitrogen 19 mg/dL (7-17); Calcium 9.1 mg/dL (8.4-10.2); Carbon Dioxide 30 mmol/L (22-30); Chloride 107 mmol/L (98-107); Glucose 108 mg/dL (74-99); Non-African American GFR(CKD) >90 (>60 ml/min/1.73 sqM); Sodium 141 mmol/L (137-145)
[2024-04-15] MEDS: ASPIRIN 325 MG TAB PO SCH (09:55)
[2024-04-15] MEDS: ENOXAPARIN 40 MG/0.4 ML SYRINGE SQ SCH (09:55)
[2024-04-15] MEDS: VENLAFAXINE HCL ER 150 MG CAP PO SCH (09:55)
--- NOTE | 2024-04-15 12:23 | P.PN ---
Subjective Progress Note Date: 04/15/24 Hospital course 59 year old F with PMH of Hypothyroid, HLD presents to the ED. She reports experiencing lower abdominal cramping this morning and tried to use the toilet. She experienced diaphoresis and lightheadedness when she stood up. After taking 2 steps, she started to experience L arm numbness, slurred speech and confusion. Symptoms have currently resolved. In the ED she underwent extensive evaluation. BP 144/94, HR 58, T 97.9F, RR 18, 99% on RA. CBC, Coag panel, CMP significant for APTT 20.9, BUN 23, glu 116. TSH < 0.015, FT4 1.43. UA large LE and [address] WBCs. EKG sinus bradycardia. CT brain subtle hypointensity right frontal lobe and right pacheco radiata suspicious for lacunar infarct. CTAP diverticulosis. CXR negative. Patient is admitted for CVA workup. Echocardiogram showed normal LV function. Unfortunately agitated saline study could not be done due to poor i mages. Carotid ultrasound negative for significant stenosis. Patient seen this morning. Patient states that her symptoms have not resolved. Physical exam General examination - Alert and Oriented 3 in NAD Heart - + S1S2 no murmurs Lungs - Clear to auscultation Abdomen soft NT ND +ve BS Extremities - No edema TAXICAB DRIVER - Moving all 4 extremities spontaneously Psych - Calm and cooperative Assessment and plan TIA Patient's symptoms of dysarthria and right upper extremity weakness have now resolved Continue with aspirin 325 mg p.o. daily, Lipitor 40 mg at bedtime MRI is pending I reviewed echocardiogram that showed normal EF. I spoke with the radiology technologist who said bubble study could not be done because of poor images. Will discussed with neurology patient will need a [facility] inpatient. PT OT and speech eval are pending Subclinical hypothyroidism Synthroid decreased to 125 mcg daily Abnormal UA Asymptomatic so no need to treat Anxiety and depression Continue with Effexor 150 mg p.o. daily DVT prophylaxis: Lovenox Objective - Vital Signs Vital signs: Vital Signs Temp 97.6 F 04/15/24 10:27 Pulse 62 04/15/24 10:27 Resp 16 04/15/24 10:27 BP 136/89 04/15/24 10:27 Pulse Ox 95 04/15/24 10:27 FiO2 Intake & Output 04/14/24 04/15/24 04/15/24 18:59 06:59 18:59 Intake Total 118 118 Balance 118 118 Weight 79.379 kg 79.4 kg Intake: Oral 118 118 Other: Voiding Method Toilet Toilet # Voids 1 - Labs CBC & Chem 7: 04/15/24 06:33 04/15/24 06:33 Labs: Abnormal Lab Results - Last 24 Hours (Table) 04/15/24 04/15/24 Range/Units 06:33 06:33 BUN 19 H (7-17) mg/dL Glucose 108 H (74-99) mg/dL Hemoglobin A1c 6.3 H (<=6.0) %
[2024-04-15 16:28] LABS: Chol/HDL Ratio 4.17 Ratio; LDL Cholesterol,Calculated 88.9 mg/dL (0.0-131.0)
[2024-04-15] MEDS: ACETAMINOPHEN TAB 325 MG TAB PO PRN (19:50)
--- NOTE | 2024-04-16 09:30 | P.CNNES ---
History of Present Illness Consult date: 04/15/24 Requesting physician: Nathalia Benitez Reason for Consult: acute dysarthria - resolved, abn brain ct History of Present Illness: Patient is a 59-year-old right-handed female came to the hospital by ambulance yesterday at 8:27 AM for strokelike symptoms. Patient states that yesterday she woke up at 6:30 AM and was just feeling slightly tired. She was getting ready for the school when at around 7:30 AM, she started sweating, had started stomach pain. She had a bowel movement but no diarrhea. She then started sweating more. At around 7:50 AM, she was not talking right, not acting right and could not move her left arm. She was talking her speech was slurred. Her family noticed that her speech was "gibberish". There was no visual disturbance, facial droop or headache. She had "overwhelming doom feeling" but denied any pain. By the time patient started coming to the ER, as her symptoms started re solving. As per EMS flowsheet when they arrived, patient was alert and oriented, answering all questions appropriately. Patient was pale, diaphoretic and dizzy. Patient stated she woke up did some things around the house and had sudden onset of dizziness pale and weakness. Denied any recent injury or illness. Denies any loss of consciousness, difficulty breathing nausea or vomiting. Patient's vitals at the scene was blood pressure 150/100, blood sugar 140, pulse rate 77, respiration 20 saturation 98% temperature 98.6. Vitals on arrival blood pressure 144/94, pulse rate 58 temperature 97.9. Blood test shows normal CBC, PT PTT, normal CMP, troponin. UA shows large amount of leukocyte Estrace and 18 WBCs. TSH is less than 0.015, normal free T41.43. Hemoglobin A1c 6.3. EKG showed sinus bradycardia with heart rate of 56. CT head revealed subtle region of hypodensity within the right frontal lobe subcortical white matter and right pacheco radiator. Findings are suspicious for age-indeterminate lacunar infarct. Consider further evaluation with MRI. Nonspecific white matter changes, likely secondary to chronic small vessel ischemic disease. Low-lying cerebellar tonsils measuring up to 3 mm from the foramen magnum. I personally reviewed CT head and agree with the findings. No previous history of strokes or TIA. Patient has history of hypertension, hyperlipidemia denies diabetes. Denies any tobacco use, drinks alcohol rarely. Patient's home medications include Lipitor 10 mg, Celebrex, levothyroxine, Effexor. She does not take any antiplatelet medication at home. Review of Systems All pertinent positive and negative review of systems reviewed in the HPI otherwise unremarkable. Past Medical History Past Medical History: Hyperlipidemia, Thyroid Disorder History of Any Multi-Drug Resistant Organisms: None Reported Past Surgical History: Back Surgery, Section Additional Past Surgical History / Comment(s): endometrial ablation. Past Psychological History: No Psychological Hx Reported Smoking Status: Never smoker Past Alcohol Use History: None Reported Past Drug Use History: None Reported Medications and Allergies Home Medications Medication Instructions Recorded Confirmed Type Atorvastatin [Lipitor] 10 mg PO DAILY 04/14/24 04/14/24 History Celecoxib [CeleBREX] 200 mg PO DAILY 04/14/24 04/14/24 History Levothyroxine Sodium [Synthroid] 137 mcg PO DAILY 04/14/24 04/14/24 History Venlafaxine HCl [Effexor XR] 150 mg PO DAILY 04/14/24 04/14/24 History Allergies Allergy/AdvReac Type Severity Reaction Status Date / Time Tetracyclines AdvReac Nausea & Verified 04/14/24 11:29 Vomiting Physical Examination - Vital Signs Vital Signs: Vital Signs Temp Pulse Pulse Resp BP BP BP 04/15/24 15:55 71 16 123/88 04/15/24 12:23 16 04/15/24 10:27 97.6 F 62 16 136/89 04/15/24 10:26 97.6 F 62 16 136/89 04/15/24 08:00 97.7 F 59 L 16 145/79 04/15/24 07:19 97.7 F 59 L 16 145/79 04/15/24 04:20 97.9 F 67 14 123/85 04/14/24 23:25 78 14 04/14/24 19:37 97.3 F L 69 16 04/14/24 17:33 80 16 125/78 04/14/24 16:13 18 133/83 BP Pulse Ox 04/15/24 15:55 100 04/15/24 12:23 04/15/24 10:27 95 04/15/24 10:26 95 04/15/24 08:00 96 04/15/24 07:19 96 11/12/24 04:20 99 04/14/24 23:25 127/80 99 04/14/24 19:37 107/64 97 04/14/24 17:33 100 04/14/24 16:13 96 Intake and Output 04/15/24 04/15/24 04/15/24 06:59 14:59 22:59 Intake Total 118 Balance 118 Intake: Oral 118 Other: Voiding Method Toilet Toilet Weight 79.4 kg Patient is a middle aged female, very pleasant, in no acute distress. Patient is alert awake oriented to time place and person. Speech and language functions are normal. Patient can name and repeat very well. No aphasia or dysarthria. Attention, concentration and fund of knowledge is adequate. On cranial nerve examination, pupils are equal, round and reacting to light, visual angulo are full on confrontation, with no neglect on double simultaneous stimulation. Extraocular muscles are intact with no nystagmus. Face is symmetric, tongue protrudes to the midline. Palatal elevation and sensation normal, hearing and shoulder shrug normal, facial sensation normal. On muscle strength testing, there is no pronator drift and the strength is normal in arms and legs distally and proximally. Deep tendon reflexes are symmetric 1+ and plantars downgoing. Sensory to touch is equal with no neglect on double simultaneous stimulation. Cerebellar function showed no ataxia for [id number] testing. No dysdiadochokinesia. No ataxia for [id number] testing on either side. Tone and bulk of muscles normal. Gait deferred.. On general examination, there is no carotid bruit or murmur, S1-S2 audible. Chest is clear on consultation. Abdomen is soft nontender. No organomegaly, bowel sounds present. Peripheral pulses are present. No peripheral edema. Results - Laboratory Findings CBC and BMP: 04/15/24 06:33 04/15/24 06:33 Abnormal Lab Findings: Abnormal Labs 04/14/24 04/14/24 04/14/24 09:47 09:47 10:41 APTT 20.9 L BUN 23 H Glucose 116 H Hemoglobin A1c TSH <0.015 L Ur Leukocyte Esterase Large H Urine WBC 18 H Urine Mucus Rare H 04/15/24 04/15/24 06:33 06:33 APTT BUN 19 H Glucose 108 H Hemoglobin A1c 6.3 H TSH Ur Leukocyte Esterase Urine WBC Urine Mucus Assessment and Plan Assessment: * Probable TIA manifesting with transient aphasia, and left arm weakness. Symptoms have resolved. Current NIH stroke scale is 0. * Abnormal CT head, with evidence of subacute to old ischemia right frontal per iventricular white matter and possible Chiari malformation. * Hyperlipidemia * Hyperthyroidism * Borderline diabetes with A1c 6.3 Plan: MRI of the brain without contrast, evaluate for acute CVA 2-D echo revealed normal biventricular systolic function with EF 55 to 60%. Mildly increased posterior wall thickness. No obvious regional wall motion abnormalities. Normal left and right atrial size. No valvular abnormalities. Carotid Doppler, revealed less than 50% stenosis of the carotid bifurcation on either side. Antegrade flow in both vertebral arteries. Fasting a.m. lipid panel with cholesterol 164, LDL 88, HDL 39, triglycerides 179. Patient takes Lipitor 10 mg. Dose increased to 40 mg. Hemoglobin A1c 6.3 Permissive hypertension for next 24-48 hours Start aspirin 325 mg daily. Patient was not taking any antiplatelet medication at home. Neuro checks every 2 hours Telemetry monitoring rule out any arrhythmia PT, OT, speech therapy DVT prophylaxis: Lovenox 40 mg subcu daily Neurology will continue to follow. Thank you for the consult.
--- NOTE | 2024-04-16 10:30 | MR ---
EXAMINATION TYPE: MR brain wo con DATE OF EXAM: 04/16/2024 10:14 AM COMPARISON: 04/14/2024. CLINICAL INDICATION: Female, 59 years old with history of CVA, Dizziness, evaluate for CVA. TECHNIQUE: Multi planar, multi sequence imaging was performed through the brain including: T1, T2, In version recovery, Diffusion weighted imaging, and gradient echo imaging. No gadolinium was given. FINDINGS: Mild cerebral atrophy with proportional dilation of ventricular system. Scattered foci of high T2 s ignal intensity are seen within the periventricular white matter. Midline structures show no abnormal ity. Diffusion-weighted imaging shows no evidence of restricted diffusion. The susceptibility weighte d images do not reveal any evidence for micro-hemorrhage. The bone marrow signal is within normal limits. Paranasal sinuses and mastoid air cells: Mild scattered paranasal sinus disease. Visualized orbits: Orbital contents are intact. IMPRESSION: 1. No evidence of intracranial mass or acute/subacute infarct. 2. Nonspecific white matter changes, likely secondary to small vessel ischemic disease. [facility], , 04/16/2024 10:27 AM
[2024-04-16 11:11] VITALS: PULSE 70; RESP 16; TEMP 98.1
--- NOTE | 2024-04-16 11:39 | P.DS ---
Providers Date of admission: 04/14/24 12:29 Attending physician: Brijesh Posada Consults: 04/14/24 12:26 Consult Physician Urgent Consulting Provider: Emili Presley Consult Reason/Comments: acute dysarthria - resolved, abn brain ct Do you want consulting provider notified?: Yes [facility] Course: Discharge Diagnosis: TIA Subclinical hypothyroidism Abnormal UA Anxiety and depression Hospital Course: 59 year old F with PMH of Hypothyroid, HLD presents to the ED. She reports experiencing lower abdominal cramping this morning and tried to use the toilet. She experienced diaphoresis and lightheadedness when she stood up. After taking 2 steps, she started to experience L arm numbness, slurred speech and confusion. Symptoms have currently resolved. In the ED she underwent extensive evaluation. BP 144/94, HR 58, T 97.9F, RR 18, 99% on RA. CBC, Coag panel, CMP significant for APTT 20.9, BUN 23, glu 116. TSH < 0.015, FT4 1.43. UA large LE and 18 WBCs. EKG sinus bradycardia. CT brain subtle hypointensity right frontal lobe and right pacheco radiata suspicious for lacunar infarct. CTAP diverticulosis. CXR negative. Patient is admitted for CVA workup. Echocardiogram showed normal LV function. Unfortunately agitated saline study could not be done due to poor images. Carotid ultrasound negative for significant stenosis. MRI was negative for acute or subacute infarct. Patient's LDL was 88. Hemoglobin A1c 6.3. Patient was seen by neurology and started on aspirin. Patient's atorvastatin was increased to 40 mg daily. Patient was told that she has prediabetes and was counseled on diet and exercise. Patient was seen by physical therapy occupational therapy and speech therapy and was deemed stable for home with regular diet. Patient at the time of discharge her symptoms had resolved. Patient seen and examined at bedside.[] Vital signs reviewed and stable. General: [non toxic], [no distress], [appears at stated age] Derm: [warm], [dry] Head: [atraumatic], [normocephalic], [symmetric] Eyes: [EOMI], [no lid lag], [anicteric sclera] Mouth: [no lip lesion], [mucus membranes moist] Cardiovascular: [S1S2 reg], [no murmur], [positive posterior tibial pulse bilateral], Lungs: [CTA bilateral], [no rhonchi, no rales] , [no accessory muscle use] Abdominal: [soft], [ nontender to palpation], [no guarding], [no appreciable organomegaly] Ext: [no gross muscle atrophy], [no edema], [no contractures] Neuro: [ CN II-XI grossly intact], [no focal neuro deficits] Psych: [Alert], [oriented], [appropriate affect] A total of [33] minutes of time were spent preparing this complex discharge summary . Patient discharged on [04/16/2024] Patient Condition at Discharge: Stable Plan - Discharge Summary New Discharge Prescriptions: New Aspirin 81 mg PO DAILY 30 Days #30 tab Atorvastatin [Lipitor] 40 mg PO HS 30 Days #30 tab Levothyroxine Sodium [Synthroid] 125 mcg PO DAILY@0630 30 Days #30 tab Continue Celecoxib [CeleBREX] 200 mg PO DAILY Venlafaxine HCl [Effexor XR] 150 mg PO DAILY Discontinued Levothyroxine Sodium [Synthroid] 137 mcg PO DAILY Atorvastatin [Lipitor] 10 mg PO DAILY Discharge Medication List Celecoxib [CeleBREX] 200 mg PO DAILY 04/14/24 [History] Venlafaxine HCl [Effexor XR] 150 mg PO DAILY 04/14/24 [History] Aspirin 81 mg PO DAILY 30 Days #30 tab 04/16/24 [Rx] Atorvastatin [Lipitor] 40 mg PO HS 30 Days #30 tab 04/16/24 [Rx] Levothyroxine Sodium [Synthroid] 125 mcg PO DAILY@0630 30 Days #30 tab 04/16/24 [Rx] Follow up Appointment(s)/Referral(s): John Gonzalez MD [Primary Care Provider] - 1-2 days Discharge Disposition: HOME SELF-CARE
[2024-04-16 11:48] VITALS: BP 166/83
== END 2024-04-16 12:35 | disposition home or self-care (01) | DRG 69 ==
LOC: EC 08:27 → 3SCARD 12:29
PROVIDERS: ADMIT Student in an Organized Health Care Education/Training Program; ATTEND Student in an Organized Health Care Education/Training Program
DX: G45.9 Transient cerebral ischemic attack, unspecified (principal); R47.01 Aphasia; R55 Syncope and collapse; R47.1 Dysarthria and anarthria; R29.700 NIHSS score 0; R41.0 Disorientation, unspecified; E78.5 Hyperlipidemia, unspecified; F32.A Depression, unspecified; F41.9 Anxiety disorder, unspecified; E03.8 Other specified hypothyroidism; G83.21 Monoplegia of upper limb affecting right dominant side; I10 Essential (primary) hypertension; R73.03 Prediabetes; Z79.1 Long term (current) use of non-steroidal anti-inflammatories (NSAID); Z79.82 Long term (current) use of aspirin; Z79.890 Hormone replacement therapy; Z79.899 Other long term (current) drug therapy
CPT/HCPCS: 36415; 70450; 70551; 71046; 74177; 80048; 80053; 80061; 81001; 83036; 84439; 84443; 84484; 85025; 85610; 85730; 93005; 93306; 93880; 96360; 99285

== ENCOUNTER → 2024-06-03 | Outpatient (CLI) | payer BC ==
[2024-06-03 15:19] LABS: ALT 22 U/L (8-44); AST 22 U/L (13-35); Albumin 4.4 g/dL (3.8-4.9); Albumin/Globulin Ratio 1.83 Ratio (1.60-3.17); Alkaline Phosphatase 97 U/L (41-126); Blood Urea Nitrogen 20.1 mg/dL (9.0-27.0); Calcium 9.7 mg/dL (8.7-10.3); Carbon Dioxide 26.4 mmol/L (21.6-31.8); Chloride 103 mmol/L (96-109); Chol/HDL Ratio 3.03 Ratio; Globulin 2.4 g/dL (1.6-3.3); Glucose 100 mg/dL (70-110); LDL Cholesterol,Calculated 79.8 mg/dL (0.0-131.0); Potassium 4.4 mmol/L (3.5-5.5); Sodium 141 mmol/L (135-145); T4, Free (Free Thyroxine) 1.22 ng/dL (0.80-1.80); Total Bilirubin 0.3 mg/dL (0.3-1.2); Total Protein 6.8 g/dL (6.2-8.2)
== END | disposition home or self-care (01) ==
LOC: LABWHC1 08:14
PROVIDERS: ATTEND Family Medicine
DX: I63.81 Other cerebral infarction due to occlusion or stenosis of small artery (principal); E03.9 Hypothyroidism, unspecified; R73.03 Prediabetes
CPT/HCPCS: 36415; 80053; 80061; 83036; 84439; 84443; 84481

== ENCOUNTER → 2024-08-07 | Outpatient (CLI) | payer BC ==
--- NOTE | 2024-08-07 08:45 | MM ---
Reason for Exam: Screening (asymptomatic). Last mammogram was performed 1 year(s) and 9 month(s) ago. Patient History: Menarche at age 11. First Full-Term at age 22. Postmenopausal. Patient used Hormonal Contraceptives for 4 years. Mother had breast cancer, age 74. Risk Values: Earlene 5 year model risk: 2.9%. NCI Lifetime model risk: 15.1%. Prior Study Comparison: 08/24/2020 Bilateral Screening Mammogram, [facility]. 10/07/2021 Bilateral Screening Mammogram, [facility]. 11/09/2022 Bilateral MG 3D screening mammo w/cad, [facility]. Tissue Density: The breasts are almost entirely fatty. Findings: Analyzed By CAD. A few benign rounded calcifications are redemonstrated. There is no suspicious group of microcalcifications or new suspicious mass in either breast. Overall Assessment: Benign, BI-RAD 2 Management: Screening Mammogram of both breasts in 1 year. Patient should continue monthly self-breast exams. A clinical breast exam by your physician is recommended on an annual basis. This exam should not preclude additional follow-up of suspicious palpable abnormalities. Note on Earlene scores and lifetime risk: 1. A Earlene score greater than 3% is considered moderate risk. If this is the case, consider specialist referral to assess eligibility for a risk reducing agent. 2. If overall lifetime risk for the development of breast cancer is 20% or higher, the patient may qualify for future screening with alternating mammogram and breast MRI. [facility], , 08/07/2024 8:42 AM. Electronically signed and approved by: Alexa Wiggins M.D. Radiologist
== END | disposition home or self-care (01) ==
LOC: RADMAMWWP 08:21
PROVIDERS: ATTEND Family Medicine
DX: Z12.31 Encounter for screening mammogram for malignant neoplasm of breast (principal); R92.313 Mammographic fatty tissue density, bilateral breasts; Z78.0 Asymptomatic menopausal state; Z80.3 Family history of malignant neoplasm of breast; Z92.0 Personal history of contraception
CPT/HCPCS: 77063; 77067

== ENCOUNTER → 2024-12-12 | Outpatient (CLI) | payer BC ==
[2024-12-12 18:56] LABS: HCT 35.5 % (37.2-46.3); HGB 10.7 g/dL (12.0-15.0); MCH 24.5 pg (27.0-32.0); MCHC 30.1 g/dL (32.0-37.0); MCV 81.2 FL (80.0-97.0); NRBC Per 100 WBC 0 X 10*3/uL (0.00-0.01); Platelet Count 353 X 10*3/uL (140-440); RBC 4.37 X 10*6/uL (4.10-5.20); RDW 14.9 % (11.5-14.5); WBC 7.55 X 10*3/uL (4.50-10.00)
[2024-12-12 19:37] LABS: Ferritin 7.1 ng/mL (10.0-291.0); Iron 37.0 UG/DL (50-170); T4, Free (Free Thyroxine) 1.36 ng/dL (0.80-1.80); Total Iron Binding Capacity 549.0 UG/DL (228-460); Vitamin B12 321.0 pg/mL (200.0-944.0)
== END | disposition home or self-care (01) ==
LOC: LABWHC1 12:30
PROVIDERS: ATTEND Family Medicine
DX: E03.9 Hypothyroidism, unspecified (principal); D50.9 Iron deficiency anemia, unspecified; R73.9 Hyperglycemia, unspecified
CPT/HCPCS: 36415; 82607; 82728; 82746; 83036; 83540; 83550; 84439; 84443; 84466; 84481; 85027